=== PATIENT | female | born 1985 | race Caucasian/White ===

== ENCOUNTER 2018-02-27 00:08 | Emergency (ER) | payer SELFPAY ==
[2018-02-27] MEDS ORDERED: Acetaminophen/Codeine 30-300mg Tablet ONE (00:26)
--- NOTE | 2018-02-27 07:39 | RAD ---
LEFT KNEE 4 VIEWS: DAET: 02/27/18. FINDINGS: No fracture, dislocation, or joint effusion is seen. The joint space appears normal. IMPRESSION: No acute findings. POS: HOME
--- NOTE | 2018-02-27 07:39 | RAD ---
LEFT FOOT 3 VIEWS: DATE: 02/27/18. FINDINGS: No fracture or periosteal reaction was seen. The small bones appear intact. A tiny calcaneal spur w as noted. IMPRESSION: No acute findings. POS: HOME
== END 2018-02-27 00:55 | disposition home or self-care (01) ==
LOC: BURERS 00:08
DX: S80.02XA Contusion of left knee, initial encounter (principal); S90.112A Contusion of left great toe without damage to nail, initial encounter; S90.122A Contusion of left lesser toe(s) without damage to nail, initial encounter; Z71.6 Tobacco abuse counseling; F41.9 Anxiety disorder, unspecified; F17.210 Nicotine dependence, cigarettes, uncomplicated; W01.0XXA Fall on same level from slipping, tripping and stumbling without subsequent striking against object, initial encounter
CPT/HCPCS: 99406